=== PATIENT | male | born 1975 | race Caucasian/White ===

== ENCOUNTER 2022-03-29 12:13 | Emergency (ER) | payer OTHER, SELFPAY ==
[2022-03-29 12:30] VITALS: BP 180/96; PULSE 87; RESP 16; O2SAT 96
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
--- NOTE | 2022-03-29 12:49 | CTR_ITS ---
PROCEDURE INFORMATION: Exam: CT Abdomen And Pelvis With Contrast Exam date and time: 03/29/2022 2:21 PM Age: 46 years old Clinical indication: Abdominal pain; Epigastric; Additional info: Periumbilical, ruq and epigastric pain TECHNIQUE: Imaging protocol: Computed tomography of the abdomen and pelvis with contrast. Radiation optimization: All CT scans at this facility use at least one of these dose optimization techniques: automated exposure control; mA and/or kV adjustment per patient size (includes targeted exams where dose is matched to clinical indication); or iterative reconstruction. Contrast material: OMNI 350; Contrast volume: 100 ml; Contrast route: INTRAVENOUS (IV); COMPARISON: No relevant prior studies available. RADIATION DOSE METRICS: Total DLP (mGy-cm): 1195.43 FINDINGS: Liver: Hepatic steatosis. No mass. Gallbladder and bile ducts: Normal. No calcified stones. No ductal dilation. Pancreas: Inflammatory stranding within the mesentery surrounding the pancreatic head and uncinate process. No ductal dilation. Spleen: Normal. No splenomegaly. Adrenal glands: Normal. No mass. Kidneys and ureters: Normal. No hydronephrosis. Stomach and bowel: Unremarkable. No obstruction. No mucosal thickening. Appendix: No evidence of appendicitis. Intraperitoneal space: Trace free fluid in the region of mesenteric inflammation. No free air. No significant fluid collection. Vasculature: Unremarkable. No abdominal aortic aneurysm. Lymph nodes: Prominent lymph nodes at the site of mesenteric inflammation surrounding the pancreatic head and uncinate process. Urinary bladder: Unremarkable as visualized. Reproductive: Unremarkable as visualized. Bones/joints: No acute fracture. Soft tissues: Unremarkable. CT/CT abdomen pelvis w con* [id number] IMPRESSION: 1. Inflammatory stranding within the mesentery surrounding the pancreatic head and uncinate process. This likely reflects sequela of acute pancreatitis. In the absence of elevated lipase levels, an additional consideration would be mesenteric panniculitis. 2. Hepatic steatosis.
[2022-03-29] MEDS: famotidine 20 mg/2 mL INJ 40 MG IVP (13:57)
[2022-03-29 13:58] VITALS: RESP 18
[2022-03-29] MEDS: morphine 4 mg/mL SDV 1 mL IVP (13:58)
[2022-03-29] MEDS: ondansetron 2 mg/ML SDV 2 mL 4 MG IVP (13:58)
[2022-03-29] MEDS: sodium chloride 0.9% 1,000 ML 999 ML IV (13:59)
[2022-03-29 14:21] LABS: Basophils % 0.4 %; Eosinophils # 0.4 10^3/uL (0.0-0.8); Eosinophils % 3.6 %; Hematocrit 46.3 % (42.0-52.0); Lymphocytes # 2.3 10^3/uL (0.8-4.8); Lymphocytes % 20.5 %; Mean Corpuscular HGB Conc 34.6 g/dL (30.0-36.0); Mean Corpuscular Hemoglobin 29.4 pg (28.0-34.0); Mean Corpuscular Volume 85.1 fl (80-94); Mean Platelet Volume 10.7 fL (7.4-10.4); Monocytes # 0.8 10^3/uL (0.2-0.9); Monocytes % 7.1 %; Neutrophils # 7.77 10^3/uL (1.8-7.7); Neutrophils % 68.1 %; Nucleated Red Blood Cells % 0 %; Platelet Count 184 10^3/cmm (130-400); Red Blood Count 5.44 10^6/uL (4.1-5.3); Red Cell Distribution Width 12.2 % (12.1-15.1); White Blood Count 11.4 10^3/uL (4.0-10.0)
[2022-03-29] MEDS: iohexol 350 mg/mL 500 mL Btl (per mL) IV (14:22)
[2022-03-29 14:44] LABS: Alanine Aminotransferase 38 U/L (0-41); Albumin Level 4.2 g/dL (3.5-5.2); Alkaline Phosphatase 81 U/L (40-130); Blood Urea Nitrogen 13 mg/dL (6-20); Carbon Dioxide 28 mmol/L (22-29); Chloride 98 mmol/L (98-107); Globulin 3.2 g/dL (1.3-4.6); Glomerular Filtration Rate 121.4 mL/min (90-130); Glucose 181 mg/dL (65-115); Lipase 79 U/L (13-60); Osmolality Calculated 285 mOsm/kg (285-295); Sodium 135 mmol/L (136-145); Total Bilirubin 0.4 mg/dL (0.15-1.2); Total Protein 7.4 g/dL (6.6-8.7)
[2022-03-29 14:57] LABS: Anion Gap 13.2 (5-19); Aspartate Amino Transferase 25 U/L (0-40); Potassium 4.2 mmol/L (3.5-5.1)
[2022-03-29 15:36] VITALS: BP 180/106; PULSE 69; TEMP 36.4; O2SAT 97
[2022-03-29 15:48] VITALS: RESP 18
[2022-03-29] MEDS: morphine 4 mg/mL SDV 1 mL 2 MG IVP (15:48)
[2022-03-29 15:57] LABS: Add Urine Microscopic? NO; Charge for UA Resulting for Rev
[2022-03-29 16:04] VITALS: BP 189/107; PULSE 80; RESP 18; TEMP 36.9; O2SAT 95
[2022-03-29 16:08] LABS: Bilirubin Urine Neg (Negative); Blood Urine Neg (Negative); Glucose Urine UA 4+ (Normal); Ketones Urine Negative (Negative); Leukocyte Esterase Urine Negative (Negative); Nitrate Urine Negative (Negative); Protein Urine Neg (Negative); Specific Gravity, Urine 1.015 (1.005-1.030); Sulfosalicylic Acid Urine Negative (Negative); Urine Appearance Clear (CLEAR); Urine Color Yellow (Yellow); Urobilinogen Urine Norm (Negative); pH Urine 8 (5-7)
== END 2022-03-29 16:06 | disposition home or self-care (01) ==
PROVIDERS: Emergency Medicine; Emergency Provider Physician Assistant
DX: K85.90 Acute pancreatitis without necrosis or infection, unspecified (principal); F17.210 Nicotine dependence, cigarettes, uncomplicated; E78.2 Mixed hyperlipidemia
CPT/HCPCS: 36415; 74177; 80053; 81003; 83690; 85025; 96374; 96375; 96376; 99285; J2270; J2405; J3490; J7030; Q9967

== ENCOUNTER → 2022-04-01 11:42 | Outpatient (BNVA) | payer OTHER, SELFPAY | PROVIDERS: PCP Nurse Practitioner; Visit Provider Nurse Practitioner | DX: K85.90 Acute pancreatitis without necrosis or infection, unspecified (principal) | CPT/HCPCS: 80053; 80061; 82150; 83036; 83690; 85025 ==

== ENCOUNTER → 2022-07-15 11:22 | Outpatient (BNVA) | payer OTHER, SELFPAY | PROVIDERS: PCP Nurse Practitioner; Visit Provider Nurse Practitioner | DX: E11.9 Type 2 diabetes mellitus without complications (principal); M79.671 Pain in right foot; M77.31 Calcaneal spur, right foot | CPT/HCPCS: 73630; 83036 ==

== ENCOUNTER → 2022-09-05 09:40 | Outpatient (BNVA) | payer OTHER, SELFPAY | PROVIDERS: PCP Nurse Practitioner; Visit Provider Podiatrist Foot & Ankle Surgery | DX: M24.571 Contracture, right ankle (principal); M19.071 Primary osteoarthritis, right ankle and foot; M72.2 Plantar fascial fibromatosis | CPT/HCPCS: 73630 ==

== ENCOUNTER → 2023-03-31 12:13 | Outpatient (BNVA) | payer OTHER, SELFPAY | PROVIDERS: PCP Nurse Practitioner; Visit Provider Nurse Practitioner Family | DX: I10 Essential (primary) hypertension (principal); Z79.899 Other long term (current) drug therapy; Z95.5 Presence of coronary angioplasty implant and graft; E78.2 Mixed hyperlipidemia; R07.89 Other chest pain; M19.079 Primary osteoarthritis, unspecified ankle and foot | CPT/HCPCS: 71046; 80053; 80061; 81003; 82306; 83036; 84443; 85025 ==

== ENCOUNTER → 2023-05-07 08:47 | Outpatient (BNVA) | payer OTHER, SELFPAY | PROVIDERS: PCP Nurse Practitioner; Visit Provider Nurse Practitioner Family | DX: I10 Essential (primary) hypertension (principal); R07.89 Other chest pain | CPT/HCPCS: 93005 ==

== ENCOUNTER → 2023-07-08 09:01 | Outpatient (BNVA) | payer OTHER, SELFPAY | PROVIDERS: PCP Nurse Practitioner; Visit Provider Nurse Practitioner Family | DX: E11.9 Type 2 diabetes mellitus without complications (principal); H61.22 Impacted cerumen, left ear | CPT/HCPCS: 80053; 83036 ==

== ENCOUNTER 2023-07-25 18:58 | Emergency (ER) | payer OTHER, SELFPAY ==
[2023-07-25 19:10] VITALS: BP 153/91; PULSE 88; RESP 17; TEMP 37.9; O2SAT 96; BMI 32.2
--- NOTE | 2023-07-25 20:37 | CTR_ITS ---
PROCEDURE INFORMATION: Exam: CT Maxillofacial With Contrast; Mandible Exam date and time: 07/25/2023 9:01 PM Age: 47 years old Clinical indication: Mass, lump, or swelling; Mouth; Patient HX: C/O pain to posterior aspect of RT side of tongue with submandibular swelling. ; Additional info: Right sided tongue swelling, pain TECHNIQUE: Imaging protocol: Computed tomography maxillofacial with intravenous contrast. Exam focused on the mandible. Radiation optimization: All CT scans at this facility use at least one of these dose optimization techniques: automated exposure control; mA and/or kV adjustment per patient size (includes targeted exams where dose is matched to clinical indication); or iterative reconstruction. Contrast material: OMNI 350; Contrast volume: 100 ml; Contrast route: INTRAVENOUS (IV); COMPARISON: No relevant prior studies available. RADIATION DOSE METRICS: Total DLP (mGy-cm): 623.98 FINDINGS: Bones: The bones are intact. No bone destruction or fracture. Paranasal sinuses: Complete opacification of the right maxillary sinus with inspissated mucus. Opacification multiple bilateral ethmoid air cells. Mucosal thickening in the frontal, left maxillary, and sphenoid sinuses. Lymph nodes: Prominent bilateral carotid chain lymph nodes are most likely reactive. Soft tissues: Unremarkable. Pharynx: Enlarged enhancing tonsils, right greater than left. 1.5 cm right intra tonsillar multiloculated abscess with peripheral enhancement. Mild soft tissue edema surrounding the right tonsil. No peritonsillar abscess. Mild enhancement of the adenoids without significant enlargement. CT/CT facial bones w con [id number] IMPRESSION: 1. Bilateral tonsillitis with 1.5 cm multiloculated right intratonsillar abscess. 2. Reactive cervical lymph nodes.
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
[2023-07-25] MEDS: iohexol 350 mg/mL 500 mL Btl (per mL) IV (21:02)
[2023-07-25] MEDS: acetaminophen 500 mg Tablet 1000 MG PO (21:37)
[2023-07-25] MEDS: cefTRIAXone 1,000 MG in sodium chloride 0.9% (plus) 50 ML 100 MG IV (23:02)
[2023-07-25] MEDS: dexamethasone 10 mg/mL INJ 16 MG IVP (23:02)
[2023-07-25] MEDS: amoxicillin-clav 875-125 mg Tablet 1 TAB PO (23:02)
[2023-07-25 23:16] VITALS: BP 149/72; PULSE 87; RESP 18; O2SAT 97
--- NOTE | 2023-07-26 21:02 | DCPLANNER ---
Message sent to ENT to follow up on Thursday
== END 2023-07-25 23:17 | disposition home or self-care (01) ==
PROVIDERS: Emergency Provider Physician Assistant; PCP Nurse Practitioner Family
DX: J36 Peritonsillar abscess (principal); F17.200 Nicotine dependence, unspecified, uncomplicated; E11.9 Type 2 diabetes mellitus without complications; Z79.84 Long term (current) use of oral hypoglycemic drugs; I10 Essential (primary) hypertension; Z79.899 Other long term (current) drug therapy
CPT/HCPCS: 70487; 96374; 96375; 99285; J0696; J1100; Q9967

== ENCOUNTER → 2024-04-20 10:51 | Outpatient (BNVA) | payer OTHER, SELFPAY | PROVIDERS: PCP Nurse Practitioner Family; Visit Provider Nurse Practitioner Family | DX: I10 Essential (primary) hypertension (principal); E78.2 Mixed hyperlipidemia; E11.9 Type 2 diabetes mellitus without complications; E55.9 Vitamin D deficiency, unspecified; Z00.00 Encounter for general adult medical examination without abnormal findings | CPT/HCPCS: 80053; 80061; 81003; 82150; 82306; 83036; 83690; 84443; 85025 ==

== ENCOUNTER 2024-06-23 07:26 | Outpatient (CLI) | payer OTHER, SELFPAY ==
--- NOTE | 2024-06-23 08:00 | US_ITS ---
WS: [id number] TESTICULAR ULTRASOUND HISTORY: N43.3 - Hydrocele, unspecified COMPARISON: None available. TECHNIQUE: Real-time and color Doppler imaging utilized to perform a testicular ultrasound. Right testicle: 5.3 cm x 3.4 cm x 3.9 cm. Normal size and echogenicity. No mass or torsion. Increased Doppler flow throughout the RIGHT testicle. No mass identified. Large complex hydrocele surrounding the testicle. Right epididymis: Small RIGHT spermatocele measures 0.6 x 0.7 x 0.3 cm. There is also mild increased vascularity within the epididymis. Left testicle: 5.1 cm x 3.4 cm x 3.4 cm. Normal size and echogenicity. No mass or torsion. Normal color Doppler is present throughout. Systolic and diastolic velocities are both present. No significant hydrocele. Left epididymis: Normal epididymis with no increased vascularity. US/US scrotum [id number] IMPRESSION: 1. Large mildly complex RIGHT hydrocele. 2. No testicular mass. 3. Increased vascularity in the RIGHT testicle and epididymis consistent with epididymal orchitis. 4. Negative LEFT testicle.
== END 2024-06-23 07:27 | disposition home or self-care (01) ==
PROVIDERS: PCP Nurse Practitioner Family; Visit Provider Nurse Practitioner Family
DX: N43.3 Hydrocele, unspecified (principal); R93.89 Abnormal findings on diagnostic imaging of other specified body structures; N43.41 Spermatocele of epididymis, single
CPT/HCPCS: 76870

== ENCOUNTER → 2024-08-19 10:28 | Outpatient (BNVA) | payer OTHER, SELFPAY | PROVIDERS: PCP Nurse Practitioner Family; Visit Provider Nurse Practitioner Family | DX: E78.2 Mixed hyperlipidemia (principal); I10 Essential (primary) hypertension; E11.9 Type 2 diabetes mellitus without complications; E55.9 Vitamin D deficiency, unspecified; Z79.899 Other long term (current) drug therapy | CPT/HCPCS: 80053; 80061; 81003; 82306; 83036; 84443; 85025; G0103 ==